=== PATIENT | male | born 1995 | race Caucasian/White ===

== ENCOUNTER 2017-04-10 18:20 | Emergency (ER) | payer MEDICAID ==
[~2017-04-10] VITALS: Ht 165.1 cm; Wt 63.5 kg
[~2017-04-10 18:20] MED LIST: KEFLEX 500MG.500 MG PO; NOMEDS XX; ULTRAM50 MG PO
--- OUTSIDE RECORDS SUMMARY | 2017-04-10 18:46 | External Medical Summary Rpt ---
Author Author [employer], [employer] Organization [employer] Address Unknown Phone Unavailable
--- OUTSIDE RECORDS SUMMARY | 2017-04-10 18:46 | External Medical Summary Rpt ---
Author Author [place] Address Unknown Phone Purpose Continuity of Care Document - through 2016
--- OUTSIDE RECORDS SUMMARY | 2017-04-10 18:46 | External Medical Summary Rpt ---
Author Author , RUBÉN [place] Address Unknown Phone [email or web address] Immunization Name Date Rout CVX Reac Dose Comm Prov Is Faci e tion ent ider Refu lity Give sed n DTaP 06-0 107 999 Hist H149 No H149 , UF 5-20 oric 00 al Info rmat ion - Sour ce Unsp ecif ied Mannie 06-0 10 999 Hist H149 No H149 o-IP 5-20 oric V 00 al Info rmat ion - Sour ce Unsp ecif ied MMR 06-0 3 999 Hist H149 No H149 5-20 oric 00 al Info rmat ion - Sour ce Unsp ecif ied
--- OUTSIDE RECORDS SUMMARY | 2017-04-10 18:46 | External Medical Summary Rpt ---
Author Author , RUBÉN [place] Address Unknown Phone [email or web address] Immunization Name Date Rout CVX Reac Dose [...]
--- OUTSIDE RECORDS SUMMARY | 2017-04-10 18:46 | External Medical Summary Rpt ---
Author Author [place] Address Unknown Phone [email or web address] Purpose Continuity of Care Document - through 2016
--- OUTSIDE RECORDS SUMMARY | 2017-04-10 18:46 | External Medical Summary Rpt ---
Author Author [employer] Organization [employer] Address Unknown Phone Unavailable Purpose Continuity of Care Document - through 2016
[2017-04-10] MEDS ORDERED: BACTRIM DS 8001 TA1 PO (19:44)
--- NOTE | 2017-04-10 19:45 | Emergency Room Report ---
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 N Clinical Suspician of Infection? N Mental Status: 1 - Regular (Normal Baseline) Sepsis Risk:Low Sepsis Risk Have you (or family members/close friends) recently traveled outside the [place]? N If Yes, where/when: Have you had exposure to infectious disease within the past month? N TB? Other? Specify: Source patient, RN notes reviewed, RN/MD Exam Limitations no limitations Comment Laceration to LEFT middle finger prior to arrival with sharp object. Patient denies any other injuries. ALLERGIES Coded Allergies: No Known Allergies (10/20/16) Home Medications Reported Medications No Home Medications (NO HOME MEDICATIONS) 1 EACH XX ONCE History Medical History General CAD? No Angina: No DE: No Hypertension? No Hyperlipidemia? No CHF? No DVT? No PE? No COPD? No Asthma? No Anemia? No GERD? No Gastric ulcers? No GI Bleed? No Hernia? No Thyroid Problems? No Hypothyroidism? No CVA? No Seizures? No Diabetes? No Renal Insuffiency? No End Stage Renal Disease? No UTI? No Stones? No BPH? No GB Disease: No Nephritic Syndrome? No Asplenia? No Hepatitis? No Sickle Cell Disease? No Arthritis? No Migraines? No Cataracts? No Glaucoma? No MRSA? No HIV? No TB? No Anxiety? No Depression? No Cancer? No More? No Immunization Hx DT/Tetanus 5-10 Years Ago Surgical Hx Previous Surgery?Y TONSILS Social History Smoking Hx Smoker: Never Smoker Tobacco: No Alcohol Alcohol: No Review of Systems All Other Systems Reviewed and Negative Musculoskeletal joint pain (LEFT middle finger laceration) Skin lesions (laceration LEFT middle finger) Physical Exam Vital Signs Vital Signs Date Time Temp Pulse Resp B/P Pulse O2 O2 Flow FiO2 Ox Delivery Rate 04/10 1952 98.2 85 16 112/60 98 04/10 1837 98.2 85 16 112/60 98 General Appearance normal appearance, WD/WN, no apparent distress Respiratory Status Yes: trachea midline, chest symmetrical, non tender chest. No: respiratory distress. Lung Sounds bilateral: normal breath sounds, lungs clear. 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 No Comment Patient tolerated procedure well, instructed to change dressing daily, follow-up with [facility] or PCP for suture removal per discharge instructions. Results/Orders Current Medication Orders Sig/Frankie Start time Last Medication Dose Route Stop Time Status Admin Lidocaine HCl 0 .STK-MED ONE 04/10 1927 DC .ROUTE Procedures Laceration/Wound Repair Laceration/Wound Repair Risks/benefits discussed with pt/guardian? Yes Tetanus status not up to date Wound Location finger(s) (LEFT 3rd, middle phalange) Wound Length (cm) 2 Wound's Depth, Shape superficial Wound Explored clean Risk of retained FB explained to pt/guardian? Yes Irrigated w/ Saline (ccs) 20 Wound Prep Betadine, Saline Anesthesia 1% Lidocaine, Digital block Volume Anesthetic (ccs) 20 Wound Debrided none Wound Repaired With sutures Suture Size/Type 5:0, Ethilon Total Number Sutures 4 Sterile Dressing Applied Yes Splint Applied Yes Departure Departure Time of Disposition 1941 Disposition DC Home or Self Care(routine) Clinical Impression Primary Impression: Laceration of left middle finger Qualifiers: Encounter type: initial encounter Damage to nail status: without damage Foreign body presence: without foreign body Qualified Code: S61.213A - Laceration without foreign body of left middle finger without damage to nail, initial encounter Condition STABLE Patient Instructions DI for Minor Laceration Additional Instructions Keep wound clean, dry, cover with triple antibiotic ointment. Watch for signs of infection: red, swollen, hot, tender, purulent discharge. ~ Increased pain or develops fever.~ Drainage or bad odor from wound.~ Notify physician or return to Emergency Department if these develop. Tylenol/Ibuprofen as needed for pain. Have stitches removed as instructed by physician 8-10 days. Contact your MD in office in a.m. to report progress and arrange follow up. If problems worsen, or new problems arise, contact MD promptly or return to ED. Discharge Counseling Counseled pt/family regarding diagnosis, test results, medications/RX, home care, follow up needs Comment Keep wound clean, dry, cover with triple antibiotic ointment. Watch for signs of infection: red, swollen, hot, tender, purulent discharge. ~ Increased pain or develops fever.~ Drainage or bad odor from wound.~ Notify physician or return to Emergency Department if these develop. Tylenol/Ibuprofen as needed for pain. Have stitches removed as instructed by physician 8-10 days. Contact your MD in office in a.m. to report progress and arrange follow up. If problems worsen, or new problems arise, contact MD promptly or return to ED. Prescriptions Current Visit Scripts SULFAMETHOXAZOLE W/TRIMETHOPRI (Bactrim Ds Tab) 1 TABLET PO BID #14 TAB ED Critical Care Critical Care No at 1151
[2017-04-10 19:52] VITALS: BP 112/60
== END 2017-04-10 19:52 | disposition home or self-care (01) ==
LOC: ER 18:20
PROC: 0HQGXZZ Repair Left Hand Skin, External Approach (ICD-10-PCS; principal; 2017-04-10)
PROC: 3E0T33Z Introduction of Anti-inflammatory into Peripheral Nerves and Plexi, Percutaneous Approach (ICD-10-PCS; principal; 2017-04-10)
PROC: 3E0T3BZ Introduction of Anesthetic Agent into Peripheral Nerves and Plexi, Percutaneous Approach (ICD-10-PCS; principal; 2017-04-10)
DX: S61.213A Laceration without foreign body of left middle finger without damage to nail, initial encounter (principal); W26.9XXA Contact with unspecified sharp object(s), initial encounter; Y92.009 Unspecified place in unspecified non-institutional (private) residence as the place of occurrence of the external cause